=== PATIENT | male | born 1990 | race Caucasian/White ===

== ENCOUNTER 2020-01-23 22:57 | Emergency (ER) | payer SELFPAY ==
--- NOTE | 2020-01-23 23:46 | ER Document Report ---
ED Medical Screen (RME) - General Chief Complaint: Skin Problem Stated Complaint: POSSIBLE CELLULITIS MASS ON BUTTOCKS Time Seen by Provider: 01/23/20 23:36 Mode of Arrival: Ambulatory Information source: Patient Notes: 29-year-old male presented ED for red swollen area to the left upper buttocks. He states it started about 4 days ago as a little red bump. He states it is constantly ground. He states he did have some chills. He states he has minimal discomfort but no real pain. 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 States he does not smoke drink or use any drugs. His pulse and blood pressure little elevated. He states he has have elevated blood pressure for the last couple times he has been seen. He states he does not have a primary care doctor. I have greeted and performed a rapid initial assessment of this patient. A comprehensive ED assessment and evaluation of the patient, analysis of test results and completion of medical decision making process will be conducted by an additional ED providers. Past Medical History - Social History Frequency of alcohol use: None Drug Abuse: None Physical Exam - Vital signs Vitals: Temp Pulse Resp BP Pulse Ox 98.7 F 108 H 18 158/90 H 98 01/23/20 23:03 01/23/20 23:03 01/23/20 23:03 01/23/20 23:03 01/23/20 23:03 Course - Vital Signs Vital signs: Temp Pulse Resp BP Pulse Ox 98.7 F 108 H 18 158/90 H 98 01/23/20 23:03 01/23/20 23:03 01/23/20 23:03 01/23/20 23:03 01/23/20 23:03
[2020-01-24 00:27] LABS: ABSOLUTE BASOPHILS # (AUTO) 0.1 10^3/uL (0.0-0.2); ABSOLUTE EOSINOPHILS # (AUTO) 0.1 10^3/uL (0.0-0.6); ABSOLUTE LYMPHOCYTES (AUTO) 1.7 10^3/uL (0.5-4.7); ABSOLUTE MONOCYTES (AUTO) 0.7 10^3/uL (0.1-1.4); ABSOLUTE NEUT (AUTO) 8.1 10^3/uL (1.7-8.2); BASOPHILS % (AUTO) 0.7 % (0-2); EOSINOPHILS % (AUTO) 0.9 % (0-6); HEMATOCRIT 42.5 % (37.9-51.0); HEMOGLOBIN 14.8 g/dL (13.5-17.0); LYMPHOCYTES % (AUTO) 15.8 % (13-45); MEAN CORPUSCULAR HEMOGLOBIN 30.8 pg (27.0-33.4); MEAN CORPUSCULAR HGB CONC 34.9 g/dL (32.0-36.0); MEAN CORPUSCULAR VOLUME 89 fl (80-97); MONOCYTES % (AUTO) 6.7 % (3-13); PLATELET COUNT 320 10^3/uL (150-450); RED CELL DISTRIBUTION WIDTH 12.8 % (11.5-14.0); SEGMENTED NEUTROPHILS % (AUTO) 75.9 % (42-78); TOTAL CELLS COUNTED % (AUTO) 100 %; WHITE BLOOD COUNT 10.7 10^3/uL (4.0-10.5)
[2020-01-24 00:36] LABS: ALBUMIN 4.1 g/dL (3.5-5.0); ALKALINE PHOSPHATASE 81 U/L (38-126); ANION GAP 10 (5-19); ASPARTATE AMINO TRANSFERASE 28 U/L (17-59); BILIRUBIN,DIRECT 0.3 mg/dL (0.0-0.4); BILIRUBIN,TOTAL 0.6 mg/dL (0.2-1.3); BLOOD UREA NITROGEN 15 mg/dL (7-20); CALCIUM 9.5 mg/dL (8.4-10.2); CARBON DIOXIDE 28 mmol/L (22-30); CHLORIDE 102 mmol/L (98-107); GLUCOSE 110 mg/dL (75-110); POTASSIUM 3.9 mmol/L (3.6-5.0); TOTAL PROTEIN 6.7 g/dL (6.3-8.2)
--- NOTE | 2020-01-24 00:54 | RADIOLOGY REPORT (SQ) ---
US PELVIS LIMITED HISTORY: Large red swollen area to left buttocks COMPARISON: None. TECHNIQUE: Lira-scale and color Doppler images of the left buttock region were obtained. FINDINGS: Images through the left buttock soft tissues demonstrate diffuse subcutaneous edema. Additionally, there are multiple well-circumscribed fluid collections, including a 1.7 x 0.9 cm collection medially, 1.3 x 5.1 cm collection in the mid left buttock, and a 1.6 x 3.1 cm collection laterally. IMPRESSION: Multiple well-circumscribed collections within the left buttock, the largest measuring 5 cm. These may represent small areas of phlegmon/abscess, seroma, or hematoma.
--- NOTE | 2020-01-24 02:06 | ER Document Report ---
ED Skin Rash/Insect Bite/Abscs - General Chief Complaint: Skin Problem Stated Complaint: POSSIBLE CELLULITIS MASS ON BUTTOCKS Time Seen by Provider: 01/23/20 23:36 Primary Care Provider: [facility] [Provider Group] - 01/27/20 Mode of Arrival: Ambulatory Notes: Patient is a 29-year-old male that comes emergency department for chief complaint of a red, swollen, tender area in the left upper outer buttock area. Patient states it started out as a small raised "bump" 4 days ago, however this is persistently worsened and spread. He states he had some chills earlier today. He denies fever, vomiting, injury to the area. Patient denies history of IV drug abuse, MRSA, abscesses. He denies any daily medications or diagnosed medical history. 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 Past Medical History - General Information source: Patient - Social History Smoking Status: Never Smoker Frequency of alcohol use: None Drug Abuse: None Lives with: Spouse/Significant other Family History: Reviewed & Not Pertinent Patient has homicidal ideation: No - Medical History Medical History: Negative Surgical Hx: Negative - Immunizations Immunizations up to date: Yes Hx Diphtheria, Pertussis, Tetanus Vaccination: Yes Review of Systems - Review of Systems Constitutional: No symptoms reported EENT: No symptoms reported Cardiovascular: No symptoms reported Respiratory: No symptoms reported Gastrointestinal: No symptoms reported Genitourinary: No symptoms reported Male Genitourinary: No symptoms reported Musculoskeletal: No symptoms reported Skin: See HPI Hematologic/Lymphatic: No symptoms reported Neurological/Psychological: No symptoms reported Physical Exam - Vital signs Vitals: Temp Pulse Resp BP Pulse Ox 98.7 F 108 H 18 158/90 H 98 01/23/20 23:03 01/23/20 23:03 01/23/20 23:03 01/23/20 23:03 01/23/20 23:03 - Notes Notes: GENERAL: Patient sitting slightly precariously to stay off the left buttock but otherwise he does not appear to be in distress. HEAD: Normocephalic, atraumatic. EYES: Pupils equal, round, and reactive to light. Extraocular movements intact. ENT: Oral mucosa moist, tongue midline. Oropharynx unremarkable. Airway patent. NECK: Full range of motion. Supple. Trachea midline. No lymphadenopathy. LUNGS: Clear to auscultation bilaterally, no wheezes, rales, or rhonchi. No respiratory distress. Non-tender chest wall. HEART: Regular rate and rhythm. No murmur ABDOMEN: Soft, non-tender. Non-distended. EXTREMITIES: Moves all 4 extremities spontaneously. No edema, normal radial and dorsalis pedis pulses bilaterally. No cyanosis. BACK: no cervical, thoracic, lumbar midline tenderness. No saddle anesthesia, normal distal neurovascular exam. Moves all extremities in full range of motion. NEUROLOGICAL: Alert and oriented x3. Normal speech. Cranial nerves II through XII grossly intact. Strength 5/5 in all extremities. PSYCH: Normal affect, normal mood. SKIN: There is a area of erythema with induration in the superior aspect of the left buttock that extends laterally. There is no overt head, there is no overt fluctuance, there is no streaking away from the area. The area is mildly tender. Otherwise unremarkable. Course - Re-evaluation Re-evalutation: 01/24/20 02:30 Patient has an area of obvious cellulitis with some induration of the left buttock. However there is no fluctuant head. Patient has no fever, he is alert and well-appearing on exam, examination is otherwise unremarkable. CBC unremarkable, chemistry unremarkable. Patient does not have a history of IV nadeen g abuse, diabetes, etc. Ultrasound from triage showing multiple small abscesses with the largest being 5 cm per ultrasound read, on bedside ultrasound these are not large in appearance and are somewhat deep. There is no streaking away from the site. Discussed with Dr. Foreman, she evaluated patient at bedside, discussed with patient different options. Decision was made to proceed with oral antib iotics, warm compresses, rest, close follow-up in the surgical clinic, the area will be traced with a medical pen, and discussed return precautions in detail with patient and significant other. They state appreciation and agreement. - Vital Signs Vital signs: Temp Pulse Resp BP Pulse Ox 98.4 F 96 14 160/92 H 98 01/24/20 02:50 01/24/20 02:50 01/24/20 02:50 01/24/20 02:50 01/24/20 02:50 - Laboratory Result Diagrams: 01/23/20 23:57 01/23/20 23:57 Laboratory results interpreted by me: 01/23/20 23:57 WBC 10.7 H Discharge - Discharge Clinical Impression: Abscess Cellulitis Qualifiers: Site of cellulitis: unspecified site Qualified Code(s): L03.90 - Cellulitis, unspecified Condition: Stable Disposition: HOME, SELF-CARE Instructions: Oral Narcotic Medication ([facility]) Additional Instructions: Your evaluation shows deep small abscesses and a superficial cellulitis. Decision has been made at this time to proceed with warm compresses to the area multiple times a day, the antibiotics as prescribed, and rest. Follow-up with the surgical clinic referral and return to the emergency department if you worsen in any way including developing fever, severe worsening swelling or pain, spreading redness outside of the trace borders, or any other concerning or worsening symptoms. Prescriptions: Sulfamethoxazole/Trimethoprim [Bactrim Ds Tablet] 1 each PO BID #14 tablet Cephalexin Monohydrate [Keflex 500 mg Capsule] 500 mg PO QID #28 capsule Forms: Return to Work, Elevated Blood Pressure Referrals: [facility] [Provider Group] - 01/27/20
[2020-01-24] MEDS ORDERED: HYDROCODONE/ACETAMINOPHEN 5-325 MG (6 TAB/ER DISP) PO PRN (02:27)
[2020-01-24] MEDS ORDERED: CEPHALEXIN 500 MG CAPSULE PO ONE (02:27)
[2020-01-24] MEDS ORDERED: SULFAMETHOXAZOLE/TRIMETHOPRIM 800-160 MG TABLET PO ONE (02:27)
[2020-01-24 02:55] VITALS: BP 160/92
== END 2020-01-24 02:50 | disposition home or self-care (01) ==
LOC: ER 22:57
DX: L03.317 Cellulitis of buttock (principal); L02.91 Cutaneous abscess, unspecified; R68.83 Chills (without fever)
CPT/HCPCS: 36415; 76857; 80053; 85025; 99284